=== PATIENT | female | born 1980 | race Caucasian/White ===

== ENCOUNTER 2016-11-24 11:21 | Emergency (ER) | payer OTHER ==
[2016-11-24 11:55] VITALS: BP 119/74
--- NOTE | 2016-11-24 14:32 | UC ---
Hip/Pelvis Pain - HPI Summary HPI Summary: Seen at [facility] ER last night, fell on ice last night at work, landed on right hip , still neck and complaints of balance problems today. She did not have any xrays done at ER yesterday. She was given IM toradol and 3 narcos. She did get some relief. states pain is down from 8 down to 7 now. right trap area is tight and shoulder with pain. slipped on ice, feet went up in front of her and landed on right hip and landed on right hand extended. she doesnt have wrist pain. no w/n/t. She has had suregry on L/s spine by neurosurgeon. she doesnt have any LBP. - History Of Current Complaint Chief Complaint: UCUpperExtremity Stated Complaint: RIGHT HIP,RIGHT SHOULDER,NECK PAIN-WC Time Seen by Provider: 11/24/16 14:23 Hx Last Menstrual Period: 11/03/16 - Allergies/Home Medications Allergies/Adverse Reactions: Allergies Allergy/AdvReac Type Severity Reaction Status Date / Time Trazodone Allergy Intermediate Hives Verified 11/24/16 11:55 Home Medications: Home Medications HYDROcodone/ACETAMIN 5-325 MG* [Lando 5-325 TAB*] 1 tab PO Q6H PRN 11/24/16 [ History Confirmed 11/24/16] PMH/Surg Hx/FS Hx/Imm Hx Previously Healthy: Yes Endocrine History Of: Reports: Thyroid Disease Denies: Diabetes Cardiovascular History Of: Denies: Cardiac Disorders, Hypertension Respiratory History Of: Denies: COPD, Asthma GI/ History Of: Denies: Ulcer - Surgical History Surgical History: Yes Surgery Procedure, Year, and Place: L4, L5 fusion october 2012. ACL repair-2007 - Family History Known Family History: Positive: Hypertension - Social History Alcohol Use: Rare Substance Use Type: None Smoking Status (MU): Former Smoker Type: Cigarettes Amount Used/How Often: 4 CIGS DAILY Have You Smoked in the Last Year: Yes - Immunization History Most Recent Influenza Vaccination: 07/2015 Review of Systems Constitutional: Negative Skin: Negative Eyes: Negative ENT: Negative Respiratory: Negative Cardiovascular: Negative Gastrointestinal: Negative Genitourinary: Negative Motor: Decreased ROM Neurovascular: Negative Musculoskeletal: Negative Neurological: Negative Psychological: Negative All Other Systems Reviewed And Are Negative: Yes Physical Exam Triage Information Reviewed: Yes Appearance: Well-Appearing, No Pain Distress - she ambulates to xray withuot any difficulty and does not appear to be in any distress when I obsereved her., Well-Nourished Vital Signs: Initial Vital Signs Temp 98.2 F 11/24/16 11:49 Pulse 57 11/24/16 11:49 Resp 16 11/24/16 11:49 BP 119/74 11/24/16 11:49 Pulse Ox 100 11/24/16 11:49 Neck exam: Normal Neck: Positive: Supple, Nontender, No Lymphadenopathy - c-spine - NT and FROM. tenderness over right upper trapezius with spasm. Respiratory Exam: Normal Respiratory: Positive: Lungs clear Cardiovascular Exam: Normal Cardiovascular: Positive: RRR, No Murmur, Pulses Normal Musculoskeletal: Positive: Other: - Right shoulder - NT. she is able to flex to 135 degress and then it becomes "stuck" and she is unable to release without my help. unable to internally or externally rotate. strength 5/5. Rt hip - tender laterally at greater trochanter. pain at that site with internal and external rotation. she moves very slowly d/t pain to get into supine position lumbar spine - not tender. b/l LE 5/5 strength. neg SLR b/l. + 2 patellar b/l and equal. Hip Injury Course/Dx - Course Course Of Treatment: Rt shoulder strain, Rt hip pain/strain. xrays of both done and reviewed. mild OA in rt hip. no frx. needs ortho f/u. OOW tomorrow. She understood me well and is agreeable with plan. - Differential Dx/Diagnosis Differential Diagnosis/HQI/PQRI: Arthritis, Bursitis, Contusion, Fracture, Sciatica, Sprain, Strain Provider Diagnoses: rt shoulder strain, rt hip pain. Discharge - Discharge Plan Condition: Stable Disposition: HOME Prescriptions: Naproxen [Naproxen EC] 500 mg PO BID #30 tab Patient Education Materials: Shoulder Pain (ED), Hip Pain (ED) Forms: *Work Release Referrals: Ashley Carey NP [Primary Care Provider] - Jenna Doran MD [Medical Doctor] - Additional Instructions: Ice and rest and follow up with ortho in 2 days. You should call your neurosurgeon if low back pain persists or worsens.
--- NOTE | 2016-11-24 14:58 | RAD ---
HISTORY: Right lateral rib pain, status post fall COMPARISONS: None VIEWS: 3, Frontal view of the pelvis with frontal and frog-leg views of the right hip FINDINGS: BONE DENSITY: Normal. BONES: There is no displaced fracture. The patient is status post spinal fusion JOINTS: There is moderate osteoporosis of the right hip and mild osteoarthritis of the left hip. ALIGNMENT: There is no dislocation. SOFT TISSUES: Unremarkable. OTHER FINDINGS: None. IMPRESSION: OSTEOARTHRITIS. NO RADIOGRAPHIC EVIDENCE FOR HIP FRACTURE. X-RAYS MAY BE NEGATIVE WITH NONDISPLACED HIP FRACTURE, IF THERE IS PERSISTENT CLINICAL CONCERN, RECOMMEND CONSIDERATION OF MRI. IN THE SETTING OF CONTRAINDICATION TO MRI OR LIMITATION IN EMERGENT ACCESS TO MRI, CT WOULD BE SUGGESTED.
--- NOTE | 2016-11-24 14:59 | RAD ---
HISTORY: Fall, right shoulder pain, decreased range of motion COMPARISONS: February 15, 2015 VIEWS: 3, Frontal internal rotation, external rotation, and outlet views of the right shoulder FINDINGS: BONE DENSITY: Normal. BONES: There is no displaced fracture. JOINTS: There is no arthropathy. ALIGNMENT: There is no dislocation. SOFT TISSUES: Unremarkable. OTHER FINDINGS: None. IMPRESSION: NO ACUTE OSSEOUS INJURY. IF SYMPTOMS PERSIST, RECOMMEND REPEAT IMAGING.
== END 2016-11-24 15:42 | disposition home or self-care (01) ==
LOC: UCCORT 11:21
DX: S46.911A Strain of unspecified muscle, fascia and tendon at shoulder and upper arm level, right arm, initial encounter (principal); W00.0XXA Fall on same level due to ice and snow, initial encounter; Y93.9 Activity, unspecified; Y92.9 Unspecified place or not applicable; M25.551 Pain in right hip; M54.2 Cervicalgia; Z88.2 Allergy status to sulfonamides; Z72.0 Tobacco use
CPT/HCPCS: 99212; G0463

== ENCOUNTER 2017-06-24 12:07 | Emergency (ER) | payer OTHER ==
[2017-06-24 12:25] VITALS: BP 121/76
--- NOTE | 2017-06-24 12:45 | UC ---
Throat Pain/Nasal Sam HPI - HPI Summary HPI Summary: sore throat x 5 days + nasal congestion , cough, post nasal drip no fever, + chills and body aches - History of Current Complaint Chief Complaint: UCRespiratory Stated Complaint: SORE THROAT Time Seen by Provider: 06/24/17 12:35 Hx Obtained From: Patient Hx Last Menstrual Period: 06/10/17 ?: No Onset/Duration: Gradual Onset, Lasting Days - 5, Still Present Severity: Moderate Cough: Nonproductive Associated Signs & Symptoms: Positive: Nasal Discharge. Negative: Dysphagia, FB Sensation, Drooling, Wheezing, Hoarseness, Sinus Discomfort, Fever, Vomiting , Rash - Allergies/Home Medications Allergies/Adverse Reactions: Allergies Allergy/AdvReac Type Severity Reaction Status Date / Time Trazodone Allergy Intermediate Hives Verified 06/24/17 12:25 PMH/Surg Hx/FS Hx/Imm Hx Previously Healthy: Yes - Surgical History Surgical History: Yes Surgery Procedure, Year, and Place: L4, L5 fusion october 2012. Right ACL repair-2007 - Family History Known Family History: Positive: Hypertension - Social History Alcohol Use: Rare Substance Use Type: None Smoking Status (MU): Former Smoker Type: Cigarettes Amount Used/How Often: 4 CIGS DAILY Have You Smoked in the Last Year: Yes - Immunization History Most Recent Influenza Vaccination: 07/2015 Review of Systems Constitutional: Chills, Fatigue Skin: Negative Eyes: Negative ENT: Sore Throat, Nasal Discharge Respiratory: Cough Cardiovascular: Negative Gastrointestinal: Negative Is Patient Immunocompromised?: No All Other Systems Reviewed And Are Negative: Yes Physical Exam Triage Information Reviewed: Yes Appearance: Well-Appearing, No Pain Distress, Well-Nourished Vital Signs: Initial Vital Signs Temp 98.2 F 06/24/17 12:20 Pulse 69 06/24/17 12:20 Resp 20 06/24/17 12:20 BP 121/76 06/24/17 12:20 Pulse Ox 100 06/24/17 12:20 Vital Signs Reviewed: Yes Eyes: Positive: Conjunctiva Clear ENT: Positive: Normal ENT inspection, Hearing grossly normal, Pharynx normal, Nasal drainage. Negative: Pharyngeal erythema Neck exam: Normal Neck: Positive: Supple, Nontender Respiratory: Positive: Chest non-tender, Lungs clear, Normal breath sounds Cardiovascular: Positive: RRR, No Murmur, Pulses Normal Abdominal Exam: Normal Skin Exam: Normal Throat Pain/Nasal Course/Dx - Differential Dx/Diagnosis Provider Diagnoses: viral pharyngitis Discharge - Discharge Plan Condition: Stable Disposition: HOME Patient Education Materials: Pharyngitis (ED) Referrals: Ashley Carey NP [Primary Care Provider] - If Needed Additional Instructions: viral pharyngitis , no need for antibiotics cont. with rest, increase fluid, Tylenol as needed for pain use otc nasal spray Flonase daily
== END 2017-06-24 12:50 | disposition home or self-care (01) ==
LOC: UCCORT 12:07
DX: J02.9 Acute pharyngitis, unspecified (principal); R09.81 Nasal congestion; R05 Cough; R53.83 Other fatigue; Z87.891 Personal history of nicotine dependence
CPT/HCPCS: 87651; 99211; G0463

== ENCOUNTER 2017-12-22 08:10 | Emergency (ER) | payer BC, OTHER ==
[2017-12-22 08:29] VITALS: BP 126/71
--- NOTE | 2017-12-22 08:40 | UC ---
Throat Pain/Nasal Sam HPI - HPI Summary HPI Summary: 2 week history of sore throat and dry cough. Over the past 2 days she has developed pain in the sternal area and upper back without associated shortness of breath or cough. No fever or more extensive myalgias. Main concern in coming in is that she has influenza, as her daughter had it 2 weeks ago with the simila r symptoms. Has been taking thera-flu. - History of Current Complaint Chief Complaint: UCGeneralIllness Stated Complaint: SORE THROAT, EAR(S) COMPLAINT Time Seen by Provider: 12/22/17 08:29 Hx Obtained From: Patient Hx Last Menstrual Period: 11/25/17 ?: No Onset/Duration: Gradual Onset, Lasting Weeks - 2 Severity: Moderate Pain Intensity: 6 Cough: Nonproductive - Epiglottits Risk Factors Epiglottis Risk Factors: Negative - Allergies/Home Medications Allergies/Adverse Reactions: Allergies Allergy/AdvReac Type Severity Reaction Status Date / Time trazodone Allergy Hives Verified 12/22/17 08:25 Home Medications: Home Medications Escitalopram Oxalate [Lexapro 10 mg] 10 mg PO DAILY 12/22/17 [History Confirmed 12/22/17] Levothyroxine TAB* [Synthroid TAB*] 50 mcg PO DAILY 12/22/17 [History Confirmed 12/22/17] PMH/Surg Hx/FS Hx/Imm Hx Previously Healthy: Yes Endocrine History: Hypothyroidism Psychological History: Anxiety - Surgical History Surgical History: Yes Surgery Procedure, Year, and Place: L4, L5 fusion october 2012. Right ACL repair-2007 - Family History Known Family History: Positive: Hypertension - Social History Occupation: Employed Full-time - [employer] home. Lives: With Family Alcohol Use: None Substance Use Type: None Smoking Status (MU): Former Smoker Type: Cigarettes Amount Used/How Often: 4 CIGS DAILY Have You Smoked in the Last Year: No - quit 2 years ago. - Immunization History Most Recent Influenza Vaccination: 07/2015 Review of Systems Constitutional: Negative Skin: Negative Eyes: Negative ENT: Sore Throat, Ear Ache - bilateral, without hearing loss. Respiratory: Cough Cardiovascular: Chest Pain - without associated shortness of breath, mildly worse with deep inspiration. Gastrointestinal: Negative Genitourinary: Negative Motor: Negative Neurovascular: Negative Musculoskeletal: Negative Neurological: Headache Psychological: Negative Is Patient Immunocompromised?: No All Other Systems Reviewed And Are Negative: Yes Physical Exam Triage Information Reviewed: Yes Appearance: Ill-Appearing - looks fatigued, but speaks easily, without apparent shortness of breath or distress., Obese Vital Signs: Initial Vital Signs Temp 98.1 F 12/22/17 08:24 Pulse 56 12/22/17 08:24 Resp 18 12/22/17 08:24 BP 126/71 12/22/17 08:24 Pulse Ox 100 12/22/17 08:24 Eyes: Positive: Conjunctiva Clear ENT: Positive: Pharynx normal - past tonsillectomy, TMs normal Neck: Positive: Supple, Nontender, No Lymphadenopathy Respiratory: Positive: Lungs clear, Normal breath sounds, No respiratory distress, No accessory muscle use, Other: - tenderness to palpation along costochondral junctions bilaterally, and mid thoracic/rhomboid area. Cardiovascular: Positive: RRR, No Murmur Abdomen Description: Positive: Nontender, No Organomegaly, Soft Musculoskeletal: Positive: Strength Intact, ROM Intact Neurological: Positive: Alert, Muscle Tone Normal Psychological Exam: Normal Skin Exam: Normal Diagnostics - Laboratory Diagnostic Studies Completed/Ordered: Rapid flu negative. Throat Pain/Nasal Course/Dx - Course Course Of Treatment: ibuprofen for chest wall pain. URI without findings of bacterial infection. - Differential Dx/Diagnosis Differential Diagnosis/HQI/PQRI: Influenza, Pharyngitis, URI Provider Diagnoses: chest wall pain. URI Discharge - Discharge Plan Condition: Stable Disposition: HOME Patient Education Materials: Chest Wall Pain (ED) Forms: *Work Release Referrals: Ashley Carey NP [Primary Care Provider] - Additional Instructions: Use ibuprofen 600mg three times daily for control of pain. Off work tonight.
== END 2017-12-22 09:13 | disposition home or self-care (01) ==
LOC: UCCORT 08:10
DX: R07.89 Other chest pain (principal); J06.9 Acute upper respiratory infection, unspecified; Z20.828 Contact with and (suspected) exposure to other viral communicable diseases; Z88.8 Allergy status to other drugs, medicaments and biological substances; E03.9 Hypothyroidism, unspecified; F41.9 Anxiety disorder, unspecified; Z87.891 Personal history of nicotine dependence
CPT/HCPCS: 87502; 99211; G0463

== ENCOUNTER 2018-08-23 17:13 | Emergency (ER) | payer BC ==
[2018-08-23 17:30] VITALS: BP 129/87
--- NOTE | 2018-08-23 17:38 | UC ---
UC General HPI - HPI Summary HPI Summary: WALKING HER DOG ON A LEASH WHEN IT TOOK OFF AFTER ANOTHER DOG PULLING HER OFF HER PORCH. C/O PAIN TO INSIDE OF L ANKLE. ONSET TODAY. - History of Current Complaint Stated Complaint: LEFT ANKLE INJURY Time Seen by Provider: 08/23/18 17:24 Hx Obtained From: Patient Hx Last Menstrual Period: 11/25/17 Onset/Duration: Sudden Onset Timing: Constant Associated Signs & Symptoms: Negative: Fever - Allergy/Home Medications Allergies/Adverse Reactions: Allergies Allergy/AdvReac Type Severity Reaction Status Date / Time trazodone Allergy Hives Verified 08/23/18 17:30 PMH/Surg Hx/FS Hx/Imm Hx - Additional Past Medical History Additional PMH: FLAT FEET Endocrine History: Thyroid Disease - Surgical History Surgical History: Yes Surgery Procedure, Year, and Place: L4, L5 fusion october 2012. Right ACL repair-2007 - Family History Known Family History: Positive: Hypertension - Social History Alcohol Use: None Substance Use Type: None Smoking Status (MU): Former Smoker Type: Cigarettes Amount Used/How Often: 4 CIGS DAILY Have You Smoked in the Last Year: No - quit 2 years ago. - Immunization History Most Recent Influenza Vaccination: 07/2015 Vaccination Up to Date: Yes Review of Systems All Other Systems Reviewed And Are Negative: Yes Constitutional: Positive: Negative Skin: Positive: Negative Eyes: Positive: Negative ENT: Positive: Negative Respiratory: Positive: Negative Cardiovascular: Positive: Negative Gastrointestinal: Positive: Negative Genitourinary: Positive: Negative Motor: Positive: Negative Neurovascular: Positive: Negative Musculoskeletal: Positive: Negative Neurological: Positive: Negative Psychological: Positive: Negative Is Patient Immunocompromised?: No Physical Exam Triage Information Reviewed: Yes Appearance: Well-Appearing Vital Signs Reviewed: Yes Eyes: Positive: Conjunctiva Clear ENT: Positive: Normal ENT inspection Neck: Positive: Supple, Nontender Respiratory: Positive: Lungs clear, Normal breath sounds Cardiovascular: Positive: RRR Abdomen Description: Positive: Nontender, No Organomegaly, Soft Bowel Sounds: Positive: Present Musculoskeletal: Positive: Other: - LLE: SWELLING AND TENDER OVER MEDIAL ANKLE. REST OF LEG UNREMARKABLE. S/V/M INTACT TO FOOT. BIALTERAL FLAT FEET. Diagnostics - Radiology No standard instances Radiology Interpretation Completed By: Radiologist - no fx L ankle Course/Dx - Course Course Of Treatment: no fx or dislocation - Differential Dx - Multi-Symptom Provider Diagnoses: Sprain L medial ankle Discharge - Sign-Out/Discharge Documenting (check all that apply): Patient Departure All imaging exams completed and their final reports reviewed: Yes - Discharge Plan Condition: Stable Disposition: HOME Patient Education Materials: Ankle Sprain (ED) Referrals: Ashley Carey NP [Primary Care Provider] - 5 Days - Billing Disposition and Condition Condition: STABLE Disposition: Home
== END 2018-08-23 18:14 | disposition home or self-care (01) ==
LOC: UCCORT 17:13
DX: S93.402A Sprain of unspecified ligament of left ankle, initial encounter (principal); W17.89XA Other fall from one level to another, initial encounter; Y93.89 Activity, other specified; Y92.008 Other place in unspecified non-institutional (private) residence as the place of occurrence of the external cause; Z88.8 Allergy status to other drugs, medicaments and biological substances; Z87.891 Personal history of nicotine dependence
CPT/HCPCS: 99213; G0463

== ENCOUNTER 2019-03-20 09:51 | Emergency (ER) | payer BC ==
[2019-03-20 10:45] VITALS: BP 103/64
--- NOTE | 2019-03-20 11:11 | UC ---
Dental HPI - HPI Summary HPI Summary: 39-year-old female presents stating she awoke this morning with some right- sided facial swelling and lower jaw discomfort. States the pain radiates up into her right ear. Reports teeth do not hurt. No recent changes in medications. Denies fever, chills, rash, pruritus, trismus, swelling of the tongue of her throat, dysphagia, and difficulty breathing. - History of Current Complaint Chief Complaint: UCGeneralIllness Stated Complaint: RIGHT SIDE DENTAL PAIN Time Seen by Provider: 03/20/19 10:56 Hx Obtained From: Patient Hx Last Menstrual Period: 11/25/17 Pain Intensity: 5 - Allergies/Home Medications Allergies/Adverse Reactions: Allergies Allergy/AdvReac Type Severity Reaction Status Date / Time trazodone Allergy Hives Verified 03/20/19 10:42 Home Medications: Home Medications Escitalopram * [Lexapro *] 20 mg PO DAILY 03/20/19 [History Confirmed 03/20/19] PMH/Surg Hx/FS Hx/Imm Hx Previously Healthy: Yes Endocrine History: Hypothyroidism Psychological History: Depression - Surgical History Surgical History: Yes Surgery Procedure, Year, and Place: L4, L5 fusion october 2012. Right ACL repair-2007 - Family History Known Family History: Positive: Hypertension - Social History Occupation: Employed Full-time Lives: With Family Alcohol Use: None Substance Use Type: None Smoking Status (MU): Former Smoker Type: Cigarettes Amount Used/How Often: 4 CIGS DAILY Length of Time of Smoking/Using Tobacco: 1 PPD x 5 Years Have You Smoked in the Last Year: No - quit 2 years ago. When Did the Patient Quit Smoking/Using Tobacco: ~2016 - Immunization History Most Recent Influenza Vaccination: 07/2015 Vaccination Up to Date: Yes Review of Systems All Other Systems Reviewed And Are Negative: Yes Constitutional: Negative: Fever, Chills Skin: Negative: Rash Eyes: Negative: Drainage, Eye Redness ENT: Positive: Ear Ache. Negative: Dental Pain, Sore Throat, Nasal Discharge, Sinus Congestion, Sinus Pain/Tenderness, Other - trismus Respiratory: Negative: Shortness Of Breath, Cough Cardiovascular: Negative: Palpitations, Chest Pain Gastrointestinal: Negative: Abdominal Pain, Vomiting, Diarrhea, Nausea Genitourinary: Positive: Negative Musculoskeletal: Positive: Negative Neurological: Positive: Negative Is Patient Immunocompromised?: No Physical Exam - Summary Physical Exam Summary: GENERAL APPEARANCE: Well developed, well nourished, alert and cooperative, and appears to be in no acute distress. HEAD: Mild right-sided facial swelling that involves the right upper and lower lip. No erythema or induration. EYES: Conjunctiva clear. No drainage. PERRL, EOM intact. Vision is grossly intact. EARS: External auditory canals and tympanic membranes clear, hearing grossly intact. NOSE: No nasal discharge. THROAT: Tongue normal. Pharynx normal. No tonsilar inflammation, swelling, exudate, or lesions. Uvula midline. Oral cavity normal. Teeth and gingiva in good general condition. No trismus. Airway patent. NECK: Neck supple, non-tender without lymphadenopathy. CARDIAC: Normal S1 and S2. No S3, S4 or murmurs. Rhythm is regular. There is no peripheral edema, cyanosis or pallor. Extremities are warm and well perfused. Capillary refill is less than 2 seconds. Peripheral pulses intact. LUNGS: Clear to auscultation without rales, rhonchi, wheezing or diminished breath sounds. ABDOMEN: Positive bowel sounds. Soft, nondistended, nontender. No guarding or rebound. No masses or hepatosplenomegally. MUSKULOSKELETAL: ROM intact to all extremities. No joint erythema or tenderness. Normal muscular development. Normal gait. SKIN: Skin normal color, texture and turgor with no lesions or eruptions. Triage Information Reviewed: Yes Vital Signs: Initial Vital Signs Temp 97.4 F 03/20/19 10:38 Pulse 62 03/20/19 10:38 Resp 16 03/20/19 10:38 BP 103/64 03/20/19 10:38 Pulse Ox 98 03/20/19 10:38 Vital Signs Reviewed: Yes Dental Complaint Course/Dx - Course Course Of Treatment: 39-year-old female presents stating she awoke this morning with some right- sided facial swelling and lower jaw discomfort. States the pain radiates up into her right ear. Reports teeth do not hurt. No recent changes in medications. Denies fever, chills, rash, pruritus, trismus, swelling of the tongue of her throat, dysphagia, and difficulty breathing. Afebrile. Vital signs stable. Patient had some mild right sided facial swelling that involved the right upper and lower lip otherwise exam was unremarkable. With the complaints of lower jaw pain I will treat for a possible dental infection however I cannot rule out the possibility of angioedema. She was prescribed amoxicillin 875 mg twice a day 10 days. She is to follow-up with her primary care provider in 3 days for recheck of symptoms. I also recommended that she try to schedule a dental appointment at the next available. Anticipatory guidance and warning symptoms were reviewed with the patient. Verbalizes understanding and agrees with plan of care. - Differential Dx/Diagnosis Differential Diagnosis/Dx: Dental Abscess, Dental Caries, Odontogenic Pain, Peridontic Disease, Other - cellulitis, angioedema Provider Diagnosis: Swelling of right side of face Discharge - Sign-Out/Discharge Documenting (check all that apply): Patient Departure All imaging exams completed and their final reports reviewed: No Studies - Discharge Plan Condition: Stable Disposition: HOME Prescriptions: Amoxicillin PO (*) [Amoxicillin 875 MG (*)] 875 mg PO BID #20 tab Patient Education Materials: Toothache (ED) Referrals: Ashley Carey NP [Primary Care Provider] - 3 Days Additional Instructions: I do not see an obvious cause of your lower jaw pain and facial swelling but may be from an early dental infection. We will start you on an antibiotic to treat for an infection. Start amoxicillin 875 mg twice a day for 10 days. Take with food to avoid upset stomach. Be sure to take the entire course even if feeling better. Take acetaminophen (Tylenol) or ibuprofen (Advil, Motrin) according to directions as needed for pain. Be sure to rinse your mouth out with a warm salt water solution after every time you eat to remove any debris. Follow up with your primary care provider in 3 days for recheck of symptoms. Make an appointment with your dentist at next available appointment. Seek immediate medical attention in the emergency room if you develop fever greater than 100.5 F, you are unable to open of close your mouth, are unable to swallow, you have swelling of the tongue or throat, have difficulty breathing, or any worsening of symptoms. - Billing Disposition and Condition Condition: STABLE Disposition: Home - Attestation Statements Provider Attestation: Per institutional requirements, I have reviewed the chart, however, I was not consulted specifically or made aware of this patient by the midlevel provider. I did not personally evaluate, interact with , or disposition this patient.
== END 2019-03-20 11:31 | disposition home or self-care (01) ==
LOC: UCCORT 09:51
DX: R22.0 Localized swelling, mass and lump, head (principal); F32.9 Major depressive disorder, single episode, unspecified; E03.9 Hypothyroidism, unspecified; Z87.891 Personal history of nicotine dependence; Z79.899 Other long term (current) drug therapy
CPT/HCPCS: 99212; G0463

== ENCOUNTER 2019-10-20 12:23 | Emergency (ER) | payer BC ==
[2019-10-20 12:48] VITALS: BP 114/69
--- NOTE | 2019-10-20 12:59 | UC ---
Respiratory Complaint HPI - HPI Summary HPI Summary: cough x 3 days cough is dry , worse with deep breathing , better with rest sore throat , fever, chills , body aches - History of Current Complaint Chief Complaint: UCRespiratory Stated Complaint: SWEATS/CHILLS COUGH Time Seen by Provider: 10/20/19 12:27 Hx Obtained From: Patient Hx Last Menstrual Period: 09/28/19 ?: No Onset/Duration: Gradual Onset, Lasting Days - 3, Still Present Severity Initially: Moderate Severity Currently: Moderate Pain Intensity: 5 Aggravating Factors: Exertion, Deep Breaths Alleviating Factors: Nothing Associated Signs And Symptoms: Positive: Fever, Chills, URI, Nasal Congestion. Negative: Dyspnea, Pleuritic Chest Pain, Wheezing, Calf Pain, Calf Swelling - Allergies/Home Medications Allergies/Adverse Reactions: Allergies Allergy/AdvReac Type Severity Reaction Status Date / Time trazodone Allergy Hives Verified 10/20/19 12:37 Home Medications: Home Medications Guaifen/Phenyleph/Acetaminophn [Tylenol Sinus Severe Caplet] 2 each PO PRN 10/20 [History] Multivitamin [Multivitamins] 1 cap PO DAILY 10/20/19 [History Confirmed 10/20/19 ] [place]-3 Fatty Acids/Fish Oil [Fish Oil 1,000 mg Softgel] 1 each PO DAILY [History Confirmed 10/20/19] PMH/Surg Hx/FS Hx/Imm Hx Endocrine History: Hypothyroidism Psychological History: Anxiety - Surgical History Surgical History: Yes Surgery Procedure, Year, and Place: L4, L5 fusion october 2012. Right ACL repair-2007 - Family History Known Family History: Positive: Hypertension - Social History Alcohol Use: None Substance Use Type: None Smoking Status (MU): Former Smoker Type: Cigarettes Amount Used/How Often: 4 CIGS DAILY Length of Time of Smoking/Using Tobacco: 1 PPD x 5 Years Have You Smoked in the Last Year: No - quit 2 years ago. When Did the Patient Quit Smoking/Using Tobacco: ~2015 - Immunization History Most Recent Influenza Vaccination: 07/2015 Vaccination Up to Date: Yes Review of Systems All Other Systems Reviewed And Are Negative: Yes Constitutional: Positive: Fever, Chills, Fatigue Skin: Positive: Negative ENT: Positive: Sore Throat, Nasal Discharge Respiratory: Positive: Cough Cardiovascular: Positive: Negative Is Patient Immunocompromised?: No Physical Exam Triage Information Reviewed: Yes Appearance: Well-Appearing, No Pain Distress, Well-Nourished Vital Signs: Initial Vital Signs Temp 97.1 F 10/20/19 12:40 Pulse 50 10/20/19 12:40 Resp 16 10/20/19 12:40 BP 114/69 10/20/19 12:40 Pulse Ox 99 10/20/19 12:40 Vital Signs Reviewed: Yes Eye Exam: Normal Eyes: Positive: Conjunctiva Clear ENT: Positive: Normal ENT inspection, Hearing grossly normal, Pharynx normal Neck exam: Normal Neck: Positive: Supple, Nontender, No Lymphadenopathy Respiratory: Positive: Chest non-tender, Lungs clear, Normal breath sounds Cardiovascular: Positive: Bradycardia Abdominal Exam: Normal Abdomen Description: Positive: Nontender, Soft Bowel Sounds: Positive: Present Skin Exam: Normal Respiratory Course/Dx - Differential Dx/Diagnosis Provider Diagnosis: Viral illness Discharge ED - Sign-Out/Discharge Documenting (check all that apply): Patient Departure All imaging exams completed and their final reports reviewed: No Studies - Discharge Plan Condition: Stable Disposition: HOME Patient Education Materials: Viral Syndrome (ED) Referrals: Ashley Carey NP [Primary Care Provider] - If Needed - Billing Disposition and Condition Condition: STABLE Disposition: Home
[2019-10-20 13:09] LABS: Influenza A Molecular NEGATIVE (Negative); Influenza B Molecular NEGATIVE (Negative)
== END 2019-10-20 13:22 | disposition home or self-care (01) ==
LOC: UCCORT 12:23
DX: B34.9 Viral infection, unspecified (principal); R05 Cough; R68.83 Chills (without fever); R52 Pain, unspecified; R53.83 Other fatigue; J02.9 Acute pharyngitis, unspecified; R09.89 Other specified symptoms and signs involving the circulatory and respiratory systems; Z88.8 Allergy status to other drugs, medicaments and biological substances; Z87.891 Personal history of nicotine dependence
CPT/HCPCS: 99211; G0463